=== PATIENT | female | born 1985 | race Caucasian/White ===

== ENCOUNTER 2017-06-25 05:52 | Observation (INO) | payer BC ==
[2017-06-25] MEDS ORDERED: Terbutaline 1 MG/ML SDV SUBCUT ONE (06:11)
[2017-06-25] MEDS ORDERED: Mineral Oil 10 ML Bottle TOP SCH (06:49)
[2017-06-25] MEDS: Lactated Ringers 1,000 ML IV SCH ×3 (06:50→08:32)
--- NOTE | 2017-06-25 07:33 | PCM.PREANE ---
Preanesthetic Assessment - Procedure Proposed Procedure: epidural for version - Anesthesia/Transfusion/Family Hx Anesthesia History: Prior Anesthesia Without Reaction Transfusion History: No Prior Transfusion(s) - Review of Systems Other: Reports: None - Physical Assessment Height: 5 ft 9 in Weight: 85.275 kg ASA Class: 2 Mental Status: Alert & Oriented x3 Airway Class: Mallampati = 1 Dentition: Reports: Normal Dentition ROM/Head Extension: Full - Lab Values: Laboratory Last Values WBC 7.69 K/uL (4.0-11.0) 06/25/17 06:24 RBC 3.97 M/uL (4.30-5.90) L 06/25/17 06:24 Hgb 13.1 g/dL (12.0-16.0) 06/25/17 06:24 Hct 38.5 % (36.0-46.0) 06/25/17 06:24 MCV 97.0 fL (80.0-98.0) 06/25/17 06:24 MCH 33.0 pg (27.0-32.0) H 06/25/17 06:24 MCHC 34.0 g/dL (31.0-37.0) 06/25/17 06:24 RDW Std Deviation 46.6 fl (28.0-62.0) 06/25/17 06:24 RDW Coeff of David 13 % (11.0-15.0) 06/25/17 06:24 Plt Count 158 K/uL (150-400) 06/25/17 06:24 MPV 11.50 fL (7.40-12.00) 06/25/17 06:24 Neut % (Auto) 74.5 % (48.0-80.0) 06/25/17 06:24 Lymph % (Auto) 17.9 % (16.0-40.0) 06/25/17 06:24 [place] % (Auto) 6.1 % (0.0-15.0) 06/25/17 06:24 Eos % (Auto) 1.4 % (0.0-7.0) 06/25/17 06:24 Baso % (Auto) 0.1 % (0.0-1.5) 06/25/17 06:24 Neut # (Auto) 5.7 K/uL (1.4-5.7) 06/25/17 06:24 Lymph # (Auto) 1.4 K/uL (0.6-2.4) 06/25/17 06:24 [place] # (Auto) 0.5 K/uL (0.0-0.8) 06/25/17 06:24 Eos # (Auto) 0.1 K/uL (0.0-0.7) 06/25/17 06:24 Baso # (Auto) 0.0 K/uL (0.0-0.1) 06/25/17 06:24 Nucleated RBC % 0.0 /100WBC 06/25/17 06:24 Nucleated RBCs # 0 K/uL 06/25/17 06:24 Blood Type B POSITIVE 06/25/17 06:24 Antibody Screen NEGATIVE 06/25/17 06:24 - Allergies Allergies/Adverse Reactions: Allergies Allergy/AdvReac Type Severity Reaction Status Date / Time No Known Allergies Allergy Verified 06/19/17 13:46 - Blood Blood Available: Yes Product(s) Available: PRBC - Acknowledgements Anesthesia Type Planned: Epidural Pt an Appropriate Candidate for the Planned Anesthesia: Yes Alternatives and Risks of Anesthesia Discussed w Pt/Guardian: Yes Pt/Guardian Understands and Agrees with Anesthesia Plan: Yes PreAnesthesia Questionnaire - Past Health History Medical/Surgical History: Denies Medical/Surgical History Other HEENT History: wears glasses/contacts Cardiovascular History: Reports: None Respiratory History: Reports: None Gastrointestinal History: Reports: None Genitourinary History: Reports: None 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 Musculoskeletal History: Reports: Fracture Other Musculoskeletal History: hx of fx finger Neurological History: Reports: None Psychiatric History: Reports: None Endocrine/Metabolic History: Reports: None Hematologic History: Reports: None Immunologic History: Reports: None Oncologic (Cancer) History: Reports: None Dermatologic History: Reports: None - Past Surgical History HEENT Surgical History: Reports: Oral Surgery - SUBSTANCE USE Smoking Status *Q: Never Smoker Tobacco Use Within Last Twelve Months: No Days Per Week of Alcohol Use: 1 Recreational Drug Use History: No - HOME MEDS Home Medications: Home Meds Ascorbic Acid [Vitamin C] 1 tab PO DAILY 07/11/16 [History] Fish Oil/[place]-3 Fatty Acids [Fish Oil 1,000 MG] 1 cap PO DAILY 07/11/16 [ History] Multivitamin [Multi-Day Vitamins] 1 tab PO DAILY 07/11/16 [History] Pnv95/Iron Fum/Folic Acid [ Caplet] 1 cap PO DAILY 07/11/16 [History] - CURRENT (IN HOUSE) MEDS Current Meds: Current Medications Lactated Ringer's (Ringers, Lactated) 1,000 mls @ 150 mls/hr IV ASDIRECTED MAUREEN Last Admin: 06/25/17 06:50 Dose: 150 mls/hr Mineral Oil (Muri-Lube) 15 ml TOP DAILY MAUREEN Discontinued Medications Terbutaline Sulfate (Brethine) 0.25 mg SUBCUT ONETIME ONE Stop: 06/25/17 06:12
[2017-06-25] MEDS ORDERED: Bupivacaine 0.5% 10 ML SDV ONE (07:49)
[2017-06-25] MEDS ORDERED: Terbutaline 1 MG/ML SDV ONE (08:21)
[2017-06-25] MEDS ORDERED: ePHEDrine 50 MG/ML SDV ONE (08:46)
[2017-06-25 10:35] LABS: CHLORIDE,CL 105 mmol/L (98-110); SODIUM,NA 138 mmol/L (136-146)
--- NOTE | 2017-06-25 15:07 | PCM48HPAN ---
Post Anesthesia Note - EVALUATION WITHIN 48HRS OF ANESTHETIC Vital Signs in Normal Range: Yes Patient Participated in Evaluation: Yes Respiratory Function Stable: Yes Airway Patent: Yes Cardiovascular Function Stable: Yes Hydration Status Stable: Yes Pain Control Satisfactory: Yes Nausea and Vomiting Control Satisfactory: Yes Mental Status Recovered: Yes
--- NOTE | 2017-06-26 09:11 | US ---
EXAM DATE: 06/25/17 PATIENT'S AGE: 32 Patient: ISABEL CHI Facility: [place], [place] Site . Site : [id number] Study: US OB Pelvis [id number] 8:53:25 AM Ordering Physician: Apolonia Arriola Final Report: Indication: External cephalic version. Technique: Ultrasound OB limited. Comparison: None. Findings: heart activity is detected at 124 beats per minute. Amniotic fluid index is 5.3 cm. Successful cephalic version. Dictated by Chaim Cummins MD @ Jun 25 2017 9:28AM (Electronic Signature) Report Signed by Proxy. [facility] SYSTEMRupa
--- NOTE | 2017-06-28 00:05 | OR ---
DATE OF PROCEDURE:06/25/2017 SURGEON: MARCIAL BLANCAS PREOPERATIVE DIAGNOSIS: A 32-year-old, G2, P0-0-1-0 at 36 weeks 3 days with breech presentation, for external cephalic version. POSTOPERATIVE DIAGNOSIS: Cephalic presentation s/p ECV ANESTHESIA: Spinal. BRIEF HISTORY: She is 32-year-old, G2, P0-0-1-0 at 36 weeks 3 days, who requested external cephalic version because of breech presentation. Before the procedure, patient was informed of the risks, benefits, and alternatives. The patient understands and signed the consent for external cephalic version. DESCRIPTION OF PROCEDURE: The patient was given terbutaline. She also had the ultrasound done, which confirmed breech presentation. Amniotic fluid was within normal limits. The patient received spinal anaesthesia before procedure. The breech was identified in the pelvis and The head was in the right upper quadrant. Using manual pressure and upward traction the breech was manipulated out of the pelvis , another hand was also placed around the occiput of the head to stimulate a forward roll. Two attempts was made. The FHR was obtained between each attempt and was found to be normal. On final attempt the fetus was shifted into a vertex lie. Following the procedure she was notd to have a reassuring adn reactive Cat 1 FHT for about 3 hours. She did not have regular contractions and there was no signs of PROM. She was discharged home and will follow up at [facility] in 2days. The patient tolerated the procedure well. GUILLE KENNEY /[id number] MTDRupa
== END 2017-06-25 15:30 | disposition home or self-care (01) ==
LOC: MW.OB 05:52 → UNDOADMIN 05:52 → MW.OB 06:09 → INTOOBSV 06:09 → UNDODISIN 15:30
PROVIDERS: ADMIT Obstetrics & Gynecology; ATTEND Obstetrics & Gynecology
PROC: 10S0XZZ Reposition Products of Conception, External Approach (ICD-10-PCS; principal; 2017-06-25)
DX: O32.1XX0 Maternal care for breech presentation, not applicable or unspecified (principal); Z3A.36 36 weeks gestation of pregnancy
CPT/HCPCS: 36415; 51702; 59025; 59412; 76815; 80048; 80076; 84550; 85025; 86850; 86900; 86901; J3105; J7120; 01958; 96360; 96361; 96372; G0378

== ENCOUNTER 2017-07-08 09:31 | Inpatient (IN) | payer BC ==
[2017-07-08] MEDS ORDERED: Sodium Chloride 0.9% 10 ML Syringe FLUSH PRN (10:20)
[2017-07-08] MEDS ORDERED: Butorphanol 1 MG/ML SDV IVPUSH PRN (10:20)
[2017-07-08] MEDS ORDERED: Nalbuphine 10 MG/1 ML Vial IVPUSH PRN (10:20)
[2017-07-08] MEDS ORDERED: Misoprostol 200 MCG Tab PO PRN (10:20)
[2017-07-08] MEDS ORDERED: Methylergonovine 0.2 MG/1 ML Amp IM PRN ×2 (10:20→20:35)
[2017-07-08] MEDS ORDERED: Water For Irrigation,Sterile 1,000 ML Container IRR PRN (10:20)
[2017-07-08] MEDS ORDERED: Lidocaine 1% 50 ML MDV INJECT PRN (10:20)
[2017-07-08] MEDS ORDERED: Carboprost Tromethamine 250 MCG/1 ML Amp IM PRN (10:20)
[2017-07-08] MEDS ORDERED: Sodium Chloride 0.9% 2.5 ML Syringe FLUSH PRN (10:20)
[2017-07-08] MEDS ORDERED: Terbutaline 1 MG/ML SDV SUBCUT PRN (10:26)
[2017-07-08] MEDS ORDERED: Oxytocin/0.9 % Sodium Chloride 30 UNIT/500 ML BAG IV SCH ×2 (10:30)
[2017-07-08] MEDS ORDERED: Ampicillin 2 GM in Sodium Chloride 0.9% 100 ML IV ONE (10:30)
[2017-07-08] MEDS: Lactated Ringers 1,000 ML IV SCH ×2 (10:45→17:08)
[2017-07-08] MEDS: Ampicillin 1 GM in Sodium Chloride 0.9% 50 ML IV SCH ×2 (15:11→19:03)
[2017-07-08] MEDS ORDERED: ePHEDrine 50 MG/ML SDV ONE (16:49)
[2017-07-08] MEDS ORDERED: Ropivacaine 0.2% 2 MG/ML 20 ML SDV ONE (16:50)
[2017-07-08] MEDS ORDERED: fentaNYL 100 MCG/2 ML SDV ONE (16:50)
[2017-07-08] MEDS ORDERED: Ropivacaine 100 ML ONE (16:50)
--- NOTE | 2017-07-08 17:21 | PCM.PREANE ---
Preanesthetic Assessment - Procedure Proposed Procedure: labor epidural - Anesthesia/Transfusion/Family Hx Anesthesia History: Prior Anesthesia Without Reaction Family History of Anesthesia Reaction: No Transfusion History: No Prior Transfusion(s) - Review of Systems Other: Reports: None - Physical Assessment Height: 5 ft 5 in Weight: 83.461 kg ASA Class: 2 Mental Status: Alert & Oriented x3 Airway Class: Mallampati = 1 Dentition: Reports: Normal Dentition ROM/Head Extension: Full - Lab Values: Laboratory Last Values WBC 11.29 K/uL (4.0-11.0) H 07/08/17 10:40 RBC 4.24 M/uL (4.30-5.90) L 07/08/17 10:40 Hgb 13.9 g/dL (12.0-16.0) 07/08/17 10:40 Hct 40.6 % (36.0-46.0) 07/08/17 10:40 MCV 95.8 fL (80.0-98.0) 07/08/17 10:40 MCH 32.8 pg (27.0-32.0) H 07/08/17 10:40 MCHC 34.2 g/dL (31.0-37.0) 07/08/17 10:40 RDW Std Deviation 46.4 fl (28.0-62.0) 07/08/17 10:40 RDW Coeff of David 13 % (11.0-15.0) 07/08/17 10:40 Plt Count 187 K/uL (150-400) 07/08/17 10:40 MPV 11.80 fL (7.40-12.00) 07/08/17 10:40 Nucleated RBC % 0.0 /100WBC 07/08/17 10:40 Nucleated RBCs # 0 K/uL 07/08/17 10:40 Membrane Rupture POSITIVE 07/08/17 09:50 Blood Type B POSITIVE 07/08/17 10:40 Antibody Screen NEGATIVE 07/08/17 10:40 - Allergies Allergies/Adverse Reactions: Allergies Allergy/AdvReac Type Severity Reaction Status Date / Time No Known Allergies Allergy Verified 06/19/17 13:46 - Blood Blood Available: Yes Product(s) Available: PRBC - Acknowledgements Anesthesia Type Planned: Epidural Pt an Appropriate Candidate for the Planned Anesthesia: Yes Alternatives and Risks of Anesthesia Discussed w Pt/Guardian: Yes Pt/Guardian Understands and Agrees with Anesthesia Plan: Yes PreAnesthesia Questionnaire - Past Health History Medical/Surgical History: Denies Medical/Surgical History Other HEENT History: wears glasses/contacts Cardiovascular History: Reports: None Respiratory History: Reports: None Gastrointestinal History: Reports: None Genitourinary History: Reports: None 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 Musculoskeletal History: Reports: Fracture Other Musculoskeletal History: hx of fx finger Neurological History: Reports: None Psychiatric History: Reports: None Endocrine/Metabolic History: Reports: None Hematologic History: Reports: None Immunologic History: Reports: None Oncologic (Cancer) History: Reports: None Dermatologic History: Reports: None - Past Surgical History Head Surgeries/Procedures: Reports: None HEENT Surgical History: Reports: Oral Surgery - SUBSTANCE USE Smoking Status *Q: Never Smoker Tobacco Use Within Last Twelve Months: No Second Hand Smoke Exposure: No Days Per Week of Alcohol Use: 1 Recreational Drug Use History: No - HOME MEDS Home Medications: Home Meds Ascorbic Acid [Vitamin C] 1 tab PO DAILY 07/11/16 [History] Fish Oil/[place]-3 Fatty Acids [Fish Oil 1,000 MG] 1 cap PO DAILY 07/11/16 [ History] Multivitamin [Multi-Day Vitamins] 1 tab PO DAILY 07/11/16 [History] Pnv95/Iron Fum/Folic Acid [ Caplet] 1 cap PO DAILY 07/11/16 [History] - CURRENT (IN HOUSE) MEDS Current Meds: Current Medications Butorphanol Tartrate (Stadol) 1 mg IVPUSH Q1H PRN PRN Reason: Pain Carboprost Tromethamine (Hemabate Ds) 250 mcg IM ASDIRECTED PRN PRN Reason: Post Hemorrhage Lactated Ringer's (Ringers, Lactated) 1,000 mls @ 150 mls/hr IV ASDIRECTED MAUREEN Last Admin: 07/08/17 17:08 Dose: 150 mls/hr Oxytocin/Sodium Chloride (Oxytocin 30 Unit/500 Ml-Ns) 30 unit in 500 mls @ 250 mls/hr IV TITRATE MAUREEN Oxytocin/Sodium Chloride (Oxytocin 30 Unit/500 Ml-Ns) 30 unit in 500 mls @ 2 mls/hr IV TITRATE MAUREEN; 2 MUNITS/MIN PRN Reason: Protocol Ampicillin Sodium 1 gm/ Sodium (Chloride) 50 mls @ 100 mls/hr IV Q4H MAUREEN Last Admin: 07/08/17 15:11 Dose: 100 mls/hr Lidocaine HCl (Xylocaine 1%) 50 ml INJECT .ONCE PRN PRN Reason: Laceration repair Methylergonovine Maleate (Methergine) 0.2 mg IM ASDIRECTED PRN PRN Reason: Post Hemorrhage Misoprostol (Cytotec) 200 mcg PO .ONCE PRN PRN Reason: Post Hemorrhage Nalbuphine HCl (Nubain) 10 mg IVPUSH Q1H PRN PRN Reason: Pain (severe 7-10) Sodium Chloride (Saline Flush) 10 ml FLUSH ASDIRECTED PRN PRN Reason: Keep Vein Open Sodium Chloride (Saline Flush) 2.5 ml FLUSH ASDIRECTED PRN PRN Reason: Keep Vein Open Sterile Water (Sterile Water For Irrigation) 1,000 ml IRR ASDIRECTED PRN PRN Reason: delivery Terbutaline Sulfate (Brethine) 0.25 mg SUBCUT ASDIRECTED PRN PRN Reason: Tacysystole Discontinued Medications Ephedrine Sulfate (Ephedrine Sulfate) Confirm Administered Dose 50 mg .ROUTE .STK-MED ONE Stop: 07/08/17 16:50 Fentanyl (Sublimaze) Confirm Administered Dose 200 mcg .ROUTE .STK-MED ONE Stop: 07/08/17 16:51 Ampicillin Sodium 2 gm/ Sodium (Chloride) 100 mls @ 200 mls/hr IV ONETIME ONE Stop: 07/08/17 10:59 Last Admin: 07/08/17 10:48 Dose: 200 mls/hr Ropivacaine (Naropin 0.2%) Confirm Administered Dose 100 mls @ as directed .ROUTE .STK-MED ONE Stop: 07/08/17 16:51 Ropivacaine (Naropin 0.2%) Confirm Administered Dose 20 ml .ROUTE .STK-MED ONE Stop: 07/08/17 16:51
[2017-07-08] MEDS ORDERED: oxyCODONE 5 MG Tab PO PRN (20:35)
[2017-07-08] MEDS ORDERED: Witch Hazel Medicated Pads 40/Jar TOP PRN (20:35)
[2017-07-08] MEDS ORDERED: Acetaminophen 500 MG Tab PO PRN (20:35)
[2017-07-08] MEDS ORDERED: Lanolin 100% Cream 7 GM Tube TOP PRN (20:35)
[2017-07-08] MEDS ORDERED: Benzocaine/Menthol 20%-0.5% Spray 78 GM Cannister TOP PRN (20:35)
[2017-07-08] MEDS ORDERED: Bisacodyl 10 MG Supp RECTAL PRN (20:35)
[2017-07-08] MEDS: Docusate Sodium 100 MG Cap PO PRN (21:56)
--- NOTE | 2017-07-09 01:44 | OR ---
SURGEON: Juana Mcdonough M.D. DATE OF PROCEDURE: 07/08/2017 PREOPERATIVE DIAGNOSES: A 38 and 2/7th week intrauterine , active spontaneous labor, group B strep positive. POSTOPERATIVE DIAGNOSES: A 38 and 2/7th week intrauterine , active spontaneous labor, group B strep positive. PROCEDURES: Group B strep prophylaxis, term spontaneous vaginal delivery, repair of second- degree laceration. PRIMARY SURGEON: Juana Mcdonough M.D. ANESTHESIA: Epidural. ESTIMATED BLOOD LOSS: Less than 300 mL. FINDINGS: Liveborn female. scores 8 and 9. Weighing 2610 grams. Placenta was spontaneous. Schultze intact with 3 vessels. Second-degree perineal laceration was repaired. BRIEF HISTORY: This is a 32-year-old female, G2, P-0-0-1-0. She presents at 38 and 2/7th weeks' gestation with suspected spontaneous rupture of membranes at approximately 08:30 p.m. on 07/07/2017. The following day, she called with some pinkish discharge concerned that she may have had spontaneous rupture of membranes. An AmniSure did confirm spontaneous rupture of membranes. She was started on ampicillin. She had category 1 heart tones. She was 2 cm when she first presented to Labor and Delivery. Within 2 hours, she had changed to 4 cm. She received an epidural for pain control. She continued to complete. DESCRIPTION OF PROCEDURE: With the patient in the dorsal lithotomy position, the patient pushed over 30- minute time period to a 5+ station, at which time the head was delivered spontaneously and atraumatically over the perineum with support. With subsequent delivery of the 's shoulders and body without any difficulty, the was bulb suctioned by nose and mouth. Cord was clamped x2 and cut and the infant was handed to Dr. Tabor who was in attendance at delivery. The was a liveborn female, scores of 8 and 9, weighing 2610 grams. Cord blood was collected for cord ABGs as well as routine cord blood sampling. The Pitocin was initiated after delivery of the infant to assist with delivery of the placenta, which was delivered spontaneously. Schultze intact with 3 vessels. Upon inspection of the pelvis and perineum, there was a second-degree perineal laceration. This was repaired using a running lock suture of 2-0 Caprosyn for the vaginal mucosa. A deep running suture of the same for the perineum and a subcuticular suture of the same for the skin. Final sponge, needle, and instrument counts were correct. There were no known complications. Mother and baby remained in LDRP in good condition. DEVI KENNEY /[id number]
[2017-07-09] MEDS: Docusate Sodium 100 MG Cap PO PRN (08:24)
[2017-07-09] MEDS: Ibuprofen 800 MG Tab PO PRN ×2 (08:24→14:41)
--- NOTE | 2017-07-09 11:38 | PCM.PNPP ---
- General Info Date of Service: 07/09/17 Admission Dx/Problem (Free Text): S/P Functional Status: Reports: Pain Controlled, Tolerating Diet, Ambulating, Urinating - Review of Systems General: Reports: No Symptoms HEENT: Reports: No Symptoms Pulmonary: Reports: No Symptoms Cardiovascular: Reports: No Symptoms Gastrointestinal: Reports: No Symptoms Genitourinary: Reports: No Symptoms Musculoskeletal: Reports: No Symptoms Skin: Reports: No Symptoms Neurological: Reports: No Symptoms Psychiatric: Reports: No Symptoms - General Info Date of Service: 07/09/17 - Patient Data Vital Signs - Most Recent: Last Vital Signs Temp 37.0 C 07/09/17 08:10 Pulse 64 07/09/17 08:10 Resp 15 07/09/17 08:10 BP 128/74 07/09/17 08:10 Pulse Ox 98 07/09/17 08:10 Weight - Most Recent: 83.461 kg I&O - Last 24 Hours: Intake & Output 07/08/17 07/09/17 07/09/17 22:59 06:59 14:59 Intake Total 50 Balance 50 Lab Results - Last 24 Hours: Laboratory Results - last 24 hr 07/08/17 07/09/17 Range/Units 10:40 05:45 Hgb 12.1 (12.0-16.0) g/dL Hct 35.2 L (36.0-46.0) % Blood Type B POSITIVE Antibody Screen NEGATIVE Med Orders - Current: Current Medications Acetaminophen (Tylenol Extra Strength) 1,000 mg PO Q4H PRN PRN Reason: Pain Benzocaine/Menthol (Dermoplast Pain Relief 20%-0.5% [place]) 0 gm TOP ASDIRECTED PRN PRN Reason: Perineal Comfort Measure Last Admin: 07/08/17 21:54 Dose: 1 canister Bisacodyl (Dulcolax) 10 mg RECTAL .ONCE PRN PRN Reason: Constipation Docusate Sodium (Colace) 100 mg PO BID PRN PRN Reason: Constipation Last Admin: 07/09/17 08:24 Dose: 100 mg Emollient Ointment (Lansinoh Hpa) 0 gm TOP ASDIRECTED PRN PRN Reason: Sore Nipples Last Admin: 07/08/17 21:55 Dose: 1 tube Ibuprofen (Motrin) 800 mg PO Q6H PRN PRN Reason: Pain Last Admin: 07/09/17 08:24 Dose: 800 mg Methylergonovine Maleate (Methergine) 0.2 mg IM .ONCE PRN PRN Reason: Excessive Vaginal Bleeding Oxycodone HCl (Oxycodone) 5 mg PO Q2H PRN PRN Reason: Pain Witch Makayla (Tucks) 1 pad TOP ASDIRECTED PRN PRN Reason: comfort care Last Admin: 07/08/17 21:55 Dose: 1 tub Discontinued Medications Butorphanol Tartrate (Stadol) 1 mg IVPUSH Q1H PRN PRN Reason: Pain Carboprost Tromethamine (Hemabate Ds) 250 mcg IM ASDIRECTED PRN PRN Reason: Post Hemorrhage Ephedrine Sulfate (Ephedrine Sulfate) Confirm Administered Dose 50 mg .ROUTE .STK-MED ONE Stop: 07/08/17 16:50 Last Admin: 07/09/17 07:47 Dose: Not Given Fentanyl (Sublimaze) Confirm Administered Dose 200 mcg .ROUTE .STK-MED ONE Stop: 07/08/17 16:51 Last Admin: 07/09/17 07:48 Dose: Not Given Lactated Ringer's (Ringers, Lactated) 1,000 mls @ 150 mls/hr IV ASDIRECTED [facility] Last Admin: 07/08/17 17:08 Dose: 150 mls/hr Oxytocin/Sodium Chloride (Oxytocin 30 Unit/500 Ml-Ns) 30 unit in 500 mls @ 250 mls/hr IV TITRATE [facility] Last Admin: 07/08/17 20:16 Dose: 500 mls/hr Ampicillin Sodium 2 gm/ Sodium (Chloride) 100 mls @ 200 mls/hr IV ONETIME ONE Stop: 07/08/17 10:59 Last Admin: 07/08/17 10:48 Dose: 200 mls/hr Oxytocin/Sodium Chloride (Oxytocin 30 Unit/500 Ml-Ns) 30 unit in 500 mls @ 2 mls/hr IV TITRATE MAUREEN; 2 MUNITS/MIN PRN Reason: Protocol Ampicillin Sodium 1 gm/ Sodium (Chloride) 50 mls @ 100 mls/hr IV Q4H [facility] Last Admin: 07/08/17 19:03 Dose: 100 mls/hr Ropivacaine (Naropin 0.2%) Confirm Administered Dose 100 mls @ as directed .ROUTE .STK-MED ONE Stop: 07/08/17 16:51 Last Admin: 07/09/17 07:48 Dose: Not Given Lidocaine HCl (Xylocaine 1%) 50 ml INJECT .ONCE PRN PRN Reason: Laceration repair Methylergonovine Maleate (Methergine) 0.2 mg IM ASDIRECTED PRN PRN Reason: Post Hemorrhage Misoprostol (Cytotec) 200 mcg PO .ONCE PRN PRN Reason: Post Hemorrhage Nalbuphine HCl (Nubain) 10 mg IVPUSH Q1H PRN PRN Reason: Pain (severe 7-10) Ropivacaine (Naropin 0.2%) Confirm Administered Dose 20 ml .ROUTE .[employer] ONE Stop: 07/08/17 16:51 Last Admin: 07/09/17 07:48 Dose: Not Given Sodium Chloride (Saline Flush) 10 ml FLUSH ASDIRECTED PRN PRN Reason: Keep Vein Open Sodium Chloride (Saline Flush) 2.5 ml FLUSH ASDIRECTED PRN PRN Reason: Keep Vein Open Sterile Water (Sterile Water For Irrigation) 1,000 ml IRR ASDIRECTED PRN PRN Reason: delivery Last Admin: 07/08/17 20:10 Dose: 1,000 ml Terbutaline Sulfate (Brethine) 0.25 mg SUBCUT ASDIRECTED PRN PRN Reason: Tacysystole - Infant Interaction Infant Disposition, : [place] in Room with Family Feeding: Attempted ; Nursed Fair/Poor - Recovery Exam Fundal Tone: Firm Fundal Level: 1 Fingerbreadths Below Umbilicus Fundal Placement: Midline Lochia Amount: Scant Lochia Color: Rubra/Red Perineum Description: Other (see below) Other Perinuem Description: 2nd degree laceration repaired Episiotomy/Laceration: Approximated Bladder Status: Voiding - Exam General: Alert, Oriented HEENT: Pupils Equal Neck: Supple Lungs: Clear to Auscultation Cardiovascular: Regular Rate, Regular Rhythm GI/Abdominal Exam: Normal Bowel Sounds Extremities: Normal Inspection Skin: Warm Wound/Incisions: Healing Well Neurological: No New Focal Deficit - Problem List & Annotations (1) Cephalic version antepartum SNOMED Code(s): 54200265, [id number], [id number] Code(s): [id number] - Status: Acute Current Visit: No - Problem List Review Problem List Initiated/Reviewed/Updated: Yes - Assessment Assessment:: 32 yo P1 s/p PPD1 , Minimal lochia - Plan Plan:: Routine care Discharge home
[2017-07-09 19:40] VITALS: BP 131/78
== END 2017-07-09 22:20 | disposition home or self-care (01) | DRG 775 ==
LOC: MW.OBCHECK 09:31 → MW.OB 09:33 → MW.OBCHECK 10:30 → OBSVTOIN 20:16 → MW.OB 07-09 00:24
PROVIDERS: ADMIT Obstetrics & Gynecology; ATTEND Obstetrics & Gynecology
PROC: 10E0XZZ Delivery of Products of Conception, External Approach (ICD-10-PCS; principal; 2017-07-08)
PROC: 0KQM0ZZ Repair Perineum Muscle, Open Approach (ICD-10-PCS; 2017-07-08)
DX: O42.02 Full-term premature rupture of membranes, onset of labor within 24 hours of rupture (principal); O70.1 Second degree perineal laceration during delivery; Z3A.38 38 weeks gestation of pregnancy; Z37.0 Single live birth
CPT/HCPCS: 36415; 51702; 59025; 59409; 84112; 85014; 85018; 85027; 86850; 86900; 86901; A9270-GY; J0290; J2590; J7030; J7050; J7120